=== PATIENT | female | born 1995 | race Caucasian/White ===

== ENCOUNTER 2017-08-05 20:31 | Emergency (ER) | payer OTHER ==
[~2017-08-05] VITALS: Ht 157.5 cm; Wt 117.9 kg
[~2017-08-05 20:31] MED LIST: ACET325 PO; ACET500 PO; BENTYL10 MG PO; HYDR1TAB94 PO; IBUP800 PO; ONDA4 PO
== END 2017-08-05 21:26 | disposition home or self-care (01) ==
LOC: ER 20:31
DX: S93.402A Sprain of unspecified ligament of left ankle, initial encounter (principal); W01.0XXA Fall on same level from slipping, tripping and stumbling without subsequent striking against object, initial encounter
CPT/HCPCS: 29515; 73610; 99283

== ENCOUNTER → 2018-04-12 | Outpatient (CLI) | payer OTHER | END | disposition home or self-care (01) | LOC: LAB EV 13:30 → LAB SHORT 13:30 | DX: N39.0 Urinary tract infection, site not specified (principal) | CPT/HCPCS: 87086 ==

== ENCOUNTER 2018-11-12 22:05 | Inpatient (IN) | payer OTHER ==
[~2018-11-12] VITALS: Ht 157.5 cm; Wt 110.0 kg
[2018-11-13 08:12] LABS: BASOPHILS ABSOLUTE AUTO 0.02 K/mm3 (0.00-0.23); BASOPHILS PERCENT AUTO 0 % (0-2); EOSINOPHILS ABSOLUTE AUTO 0.06 K/mm3 (0.00-0.68); EOSINOPHILS PERCENT AUTO 1 % (0-6); Hematocrit 35.2 % (33.0-51.0); Hemoglobin 11.3 g/dL (11.5-16.0); IMMATURE GRAN ABSOLUTE AUTO 0.04 K/mm3 (0.00-0.10); IMMATURE GRAN PERCENT AUTO 0 % (0-1); LYMPHOCYTES ABSOLUTE AUTO 1.72 K/mm3 (0.84-5.20); LYMPHOCYTES PERCENT AUTO 13 % (21-46); MONOCYTES ABSOLUTE AUTO 0.55 K/mm3 (0.16-1.47); MONOCYTES PERCENT AUTO 4 % (4-13); Mean Corpuscular HGB 25.5 pg (26.0-34.0); Mean Corpuscular HGB Conc 32.1 g/dL (31.5-36.5); Mean Corpuscular Volume 80 fL (80-100); Mean Platelet Volume 9.2 fL (9.1-12.4); NEUTROPHILS ABSOLUTE AUTO 10.63 K/mm3 (1.96-9.15); NEUTROPHILS PERCENT AUTO 82 % (41-73); Platelet Count 389 K/mm3 (150-400); RDW Coefficient Variation 14.5 % (11.7-14.2); RDW Standard Deviation 41.5 fL (35.1-46.3); Red Blood Cell Count 4.43 M/mm3 (3.80-5.20); White Blood Cell Count 13.02 K/mm3 (4.00-11.30)
[2018-11-14 05:18] LABS: BASOPHILS ABSOLUTE AUTO 0.02 K/mm3 (0.00-0.23); BASOPHILS PERCENT AUTO 0 % (0-2); EOSINOPHILS ABSOLUTE AUTO 0.02 K/mm3 (0.00-0.68); EOSINOPHILS PERCENT AUTO 0 % (0-6); Hematocrit 26.2 % (33.0-51.0); Hemoglobin 8.5 g/dL (11.5-16.0); IMMATURE GRAN ABSOLUTE AUTO 0.11 K/mm3 (0.00-0.10); IMMATURE GRAN PERCENT AUTO 1 % (0-1); LYMPHOCYTES ABSOLUTE AUTO 1.35 K/mm3 (0.84-5.20); LYMPHOCYTES PERCENT AUTO 9 % (21-46); MONOCYTES ABSOLUTE AUTO 0.78 K/mm3 (0.16-1.47); MONOCYTES PERCENT AUTO 5 % (4-13); Mean Corpuscular HGB 26.2 pg (26.0-34.0); Mean Corpuscular HGB Conc 32.4 g/dL (31.5-36.5); Mean Corpuscular Volume 81 fL (80-100); Mean Platelet Volume 9.3 fL (9.1-12.4); NEUTROPHILS ABSOLUTE AUTO 12.37 K/mm3 (1.96-9.15); NEUTROPHILS PERCENT AUTO 85 % (41-73); Platelet Count 282 K/mm3 (150-400); RDW Coefficient Variation 14.5 % (11.7-14.2); RDW Standard Deviation 41.9 fL (35.1-46.3); Red Blood Cell Count 3.25 M/mm3 (3.80-5.20); White Blood Cell Count 14.65 K/mm3 (4.00-11.30)
[2018-11-14] MEDS ORDERED: IBUP800 PO (10:18)
[2018-11-14] MEDS ORDERED: DOCU100 PO (10:20)
== END 2018-11-14 18:25 | disposition home or self-care (01) | DRG 807 ==
LOC: OBS 22:05 → BC 22:08 → OBS 11-13 07:42 → BC 11-13 07:48
PROVIDERS: ADMIT Nurse Practitioner Obstetrics & Gynecology
PROC: 10E0XZZ Delivery of Products of Conception, External Approach (ICD-10-PCS; principal; 2018-11-13)
PROC: 3E0R3BZ Introduction of Anesthetic Agent into Spinal Canal, Percutaneous Approach (ICD-10-PCS; 2018-11-13)
DX: O77.0 Labor and delivery complicated by meconium in amniotic fluid (principal); Z37.0 Single live birth; Z3A.39 39 weeks gestation of pregnancy; O99.214 Obesity complicating childbirth; E66.9 Obesity, unspecified
CPT/HCPCS: 36415; 51702; 59025; 85025; 86900; 86901; 99213; J1885; J2001; J2210; J2405; J2590; J3010; J7120

== ENCOUNTER 2019-01-27 08:41 | Day surgery (SDC) | payer OTHER ==
[~2019-01-27] VITALS: Ht 160 cm; Wt 104.7 kg
[~2019-01-27 08:41] MED LIST changes: +DOCU100 PO
[2019-01-27] MEDS ORDERED: SERT25 (09:28)
--- NOTE | 2019-01-27 10:10 | NUR ---
01/27/19 1010 Marta Cuellar ABDOMEN PREPPED BY [facility].VIVIANE.
== END 2019-01-27 12:21 | disposition home or self-care (01) ==
LOC: ORSCSDS 08:41
PROVIDERS: Obstetrics & Gynecology
PROC: 0UT74ZZ Resection of Bilateral Fallopian Tubes, Percutaneous Endoscopic Approach (ICD-10-PCS; principal; 2019-01-27 10:00)
DX: Z30.2 Encounter for sterilization (principal); N80.3 Endometriosis of pelvic peritoneum; E66.01 Morbid (severe) obesity due to excess calories; Z68.41 Body mass index [BMI] 40.0-44.9, adult
CPT/HCPCS: 88302; J0171; J0690; J1885; J2405; J2704; J3010; J7120

== ENCOUNTER → 2019-07-08 | Outpatient (CLI) | payer OTHER ==
[~2019-07-08] MED LIST changes: +SERT25
== END | disposition home or self-care (01) ==
LOC: LAB SHORT 10:05 → LAB EV 10:05
DX: N39.0 Urinary tract infection, site not specified (principal)
CPT/HCPCS: 87086

== ENCOUNTER → 2021-07-18 | Outpatient (CLI) | payer OTHER | END | disposition home or self-care (01) | LOC: LAB 10:00 → LAB SHORT 10:00 | DX: J02.9 Acute pharyngitis, unspecified (principal) | CPT/HCPCS: 87081 ==

== ENCOUNTER → 2022-10-22 | Outpatient (CLI) | payer OTHER ==
[2022-10-22 17:56] LABS: BASOPHILS ABSOLUTE AUTO 0.03 K/mm3 (0.00-0.23); BASOPHILS PERCENT AUTO 0 % (0-2); EOSINOPHILS ABSOLUTE AUTO 0.04 K/mm3 (0.00-0.68); EOSINOPHILS PERCENT AUTO 0 % (0-6); Hematocrit 44.6 % (33.0-51.0); Hemoglobin 15.5 g/dL (11.5-16.0); IMMATURE GRAN ABSOLUTE AUTO 0.06 K/mm3 (0.00-0.10); IMMATURE GRAN PERCENT AUTO 1 % (0-1); LYMPHOCYTES ABSOLUTE AUTO 2.48 K/mm3 (0.84-5.20); LYMPHOCYTES PERCENT AUTO 20 % (21-46); MONOCYTES ABSOLUTE AUTO 0.64 K/mm3 (0.16-1.47); MONOCYTES PERCENT AUTO 5 % (4-13); Mean Corpuscular HGB 30.3 pg (26.0-34.0); Mean Corpuscular HGB Conc 34.8 g/dL (31.5-36.5); Mean Corpuscular Volume 87 fL (80-100); Mean Platelet Volume 9.6 fL (9.1-12.4); NEUTROPHILS ABSOLUTE AUTO 9.36 K/mm3 (1.96-9.15); NEUTROPHILS PERCENT AUTO 74 % (41-73); Platelet Count 409 K/mm3 (150-400); RDW Coefficient Variation 12.3 % (11.7-14.2); RDW Standard Deviation 39.5 fL (35.1-46.3); Red Blood Cell Count 5.11 M/mm3 (3.80-5.20); White Blood Cell Count 12.61 K/mm3 (4.00-11.30)
[2022-10-22 18:07] LABS: Albumin, Blood 4.1 g/dL (3.4-5.0); Albumin/Globulin Ratio 1.1 (0.8-1.8); Bilirubin, Total 1.2 mg/dL (0.1-1.0); Bun/Creatinine Ratio 8.6 (12.0-20.0); Calcium, Blood 9.6 mg/dL (8.5-10.1); Creatinine, Blood 0.81 mg/dL (0.40-1.00); Globulin, Blood 3.7 g/dL (2.2-4.0); Potassium, Blood 3.9 mmol/L (3.5-5.5); Total Protein, Blood 7.8 g/dL (6.4-8.2)
== END | disposition home or self-care (01) ==
LOC: LAB 17:51 → LAB SHORT 17:51
PROVIDERS: Emergency Medicine
DX: K92.1 Melena (principal)
CPT/HCPCS: 80053; 83690; 85025

== ENCOUNTER 2023-02-21 06:33 | Inpatient (IN) | payer OTHER ==
[~2023-02-21] VITALS: Ht 170.2 cm; Wt 99.8 kg
[2023-02-21 07:37] LABS: BASOPHILS ABSOLUTE AUTO 0.04 K/mm3 (0.00-0.23); BASOPHILS PERCENT AUTO 0 % (0-2); EOSINOPHILS ABSOLUTE AUTO 0.21 K/mm3 (0.00-0.68); EOSINOPHILS PERCENT AUTO 2 % (0-6); Hematocrit 43.8 % (33.0-51.0); Hemoglobin 14.4 g/dL (11.5-16.0); IMMATURE GRAN ABSOLUTE AUTO 0.03 K/mm3 (0.00-0.10); IMMATURE GRAN PERCENT AUTO 0 % (0-1); LYMPHOCYTES ABSOLUTE AUTO 2.45 K/mm3 (0.84-5.20); LYMPHOCYTES PERCENT AUTO 21 % (21-46); MONOCYTES ABSOLUTE AUTO 0.64 K/mm3 (0.16-1.47); MONOCYTES PERCENT AUTO 6 % (4-13); Mean Corpuscular HGB 28.4 pg (26.0-34.0); Mean Corpuscular HGB Conc 32.9 g/dL (31.5-36.5); Mean Corpuscular Volume 86 fL (80-100); Mean Platelet Volume 9.5 fL (9.1-12.4); NEUTROPHILS ABSOLUTE AUTO 8.15 K/mm3 (1.96-9.15); NEUTROPHILS PERCENT AUTO 71 % (41-73); Platelet Count 468 K/mm3 (150-400); RDW Coefficient Variation 12.5 % (11.7-14.2); RDW Standard Deviation 38.8 fL (35.1-46.3); Red Blood Cell Count 5.07 M/mm3 (3.80-5.20); White Blood Cell Count 11.52 K/mm3 (4.00-11.30)
[2023-02-21 07:52] LABS: Alanine Aminotransfer (ALT/SGP 50 U/L (12-78); Albumin, Blood 3.8 g/dL (3.4-5.0); Alk Phos 94 U/L (50-136); Anion Gap 6 mmol/L (6-16); Aspartate Aminotrans (AST/SGOT 21 U/L (12-37); Beta HCG, Quantitative, Serum <1 mIU/mL (0-3); Bilirubin, Total 1.2 mg/dL (0.1-1.0); Blood Urea Nitrogen 9 mg/dL (8-24); Bun/Creatinine Ratio 14.8 (12.0-20.0); CO2, Blood 23 mmol/L (21-32); Calcium, Blood 8.4 mg/dL (8.5-10.1); Chloride, Blood 112 mmol/L (98-108); Creatinine, Blood 0.61 mg/dL (0.40-1.00); Globulin, Blood 3.8 g/dL (2.2-4.0); Glomerular Filtration Rate 126 (60-); Glucose, Blood 90 mg/dL (70-99); Potassium, Blood 3.6 mmol/L (3.5-5.5); Sodium, Blood 141 mmol/L (136-145); Total Protein, Blood 7.6 g/dL (6.4-8.2)
[2023-02-21 08:13] LABS: International Normalized Ratio 0.95
[2023-02-21 10:13] LABS: Percent Saturation 10.2 % (15.0-50.0)
[2023-02-21 11:38] LABS: Adenovirus F 40/41 Not Detected (NOT DETECT); Astrovirus Not Detected (NOT DETECT); Campylobacter Sp Not Detected (NOT DETECT); Cryptosporidium Not Detected (NOT DETECT); Cyclospora Cayetanensis Not Detected (NOT DETECT); E. Coli O157 Not Detected (NOT DETECT); Entamoeba Histolytica Not Detected (NOT DETECT); Enteroaggregative E. coli-EAEC Not Detected (NOT DETECT); Enteropathogenic E. coli-EPEC Not Detected (NOT DETECT); Enterotoxigenic E. coli-ETEC Not Detected (NOT DETECT); Giardia Lamblia Not Detected (NOT DETECT); Norovirus GI/GII Not Detected (NOT DETECT); Plesiomonas Shigelloides Not Detected (NOT DETECT); Rotavirus A Not Detected (NOT DETECT); Salmonella Sp Not Detected (NOT DETECT); Sapovirus Not Detected (NOT DETECT); Shiga Toxin-prod E. coli-STEC Not Detected (NOT DETECT); Shigella/Enteroin E. coli-EIEC Not Detected (NOT DETECT); Vibrio Cholerae Not Detected (NOT DETECT); Vibrio Sp Not Detected (NOT DETECT); Yersinia Enterocolitica Not Detected (NOT DETECT)
[2023-02-21 11:55] VITALS: BP 125/80
[2023-02-21 14:54] LABS: Hematocrit 41.3 % (33.0-51.0); Hemoglobin 13.6 g/dL (11.5-16.0)
[2023-02-21 15:14] VITALS: BP 118/77
--- NOTE | 2023-02-21 18:38 | NUR ---
PT ADMITTED TO ROOM 1150, A/O X4, STEADY ON FEET, INDEPENDANT IN ROOM. ORIENTED TO ROOM SET UP AND SARETY. INSTRUCTED TO BE ON CLEAR LIQ DIET. STARTED IV NS AT 100ML/HR. CALL LIGHT ORIENTATION.
--- NOTE | 2023-02-21 18:53 | NUR ---
SUMMARY- PT A/O X4, INDEPENDANT IN ROOM. HAD IRON INFUSION. TOLERATING CLEAR LIQ DIET. DRINKING LG AMOUNTS OF CLEARS. IVF DC'D. PLAN FOR COLONOSCOPY TOMORROW AFTERNOON AFTER COLON PREP COMPLETE. WILL REPORT TO ROB BLANCO
[2023-02-21 19:48] VITALS: BP 119/83
[2023-02-22] VITALS (42 sets, daily range): BP systolic 90–133; BP diastolic 36–86
--- NOTE | 2023-02-22 03:44 | NUR ---
END OF SHIFT SUMMARY PT A&O x4, VSS, AFEBRILE. PT PLEASANT AND COOPERATIVE WITH CARE PROVIDED. PT ABLE TO MAKE NEEDS KNOWN. PT C/O PAIN TO ABDOMINAL REGION SPECIFICALLY TO THE LUQ. PAIN MANAGED WITH PRN APAP WHICH WAS SOMEWHAT EFFECTIVE IN RELIEVING THE DISCOMFORT/TENDERNESS. BOWEL TONES PRESENT, PT STATED HER ABDOMEN FEELS MORE DISTENDED THEN USUAL. NAUSEA TREATED WITH PRN IV ZOFRAN. PT's LAST BOWEL MOVEMENT WAS YESTERDAY WITH MULTIPLE SPECS OF BRIGHT RED BLOOD. PT NPO AT 1200, SHE HAS A COLONOSCOPY SCHEDULED FOR TODAY. CALL LIGHT WITHIN REACH, [facility].
[2023-02-22 04:46] LABS: Hematocrit 40.6 % (33.0-51.0); Hemoglobin 13.3 g/dL (11.5-16.0); Mean Corpuscular HGB 28.7 pg (26.0-34.0); Mean Corpuscular HGB Conc 32.8 g/dL (31.5-36.5); Mean Corpuscular Volume 88 fL (80-100); Mean Platelet Volume 9.4 fL (9.1-12.4); Platelet Count 401 K/mm3 (150-400); RDW Coefficient Variation 12.5 % (11.7-14.2); RDW Standard Deviation 39.7 fL (35.1-46.3); Red Blood Cell Count 4.63 M/mm3 (3.80-5.20); White Blood Cell Count 9.32 K/mm3 (4.00-11.30)
[2023-02-22 05:13] LABS: Bun/Creatinine Ratio 8.6 (12.0-20.0); Calcium, Blood 8.6 mg/dL (8.5-10.1); Creatinine, Blood 0.58 mg/dL (0.40-1.00); Potassium, Blood 3.6 mmol/L (3.5-5.5)
--- NOTE | 2023-02-22 09:00 | NUR ---
pt laying in bed awake a/ox4, pleasant and cooperative with care, follows commands well, reports discomfort across her abd, points to upper abd, states more pronounced on left side, states her stools continue to have blood, lungs are clear t/o, on r/a, no cough noted, hrr, no edema noted, ppp+2, cap refill <3sec, vs stable, afebrile, piv site to lfa site is clear and patent, btx4, abd flat soft nontender, voids without diff, skin c/w/d, maew, up indep, chiki, call light in reach.
--- NOTE | 2023-02-22 14:15 | NUR ---
pt has been taken down for colonoscopy. her stool was clear yellow and one with pink tinged.
--- NOTE | 2023-02-22 14:42 | NUR ---
PT BROUGHT VIA GURNEY FROM 358 Patient confirms NPO status and agrees with scheduled surgery. History, Chart, Medications and Allergies reviewed before start of procedure.Pre-Op teaching done. Pt verbalizes understanding. Patient States Post-Procedure ride home has been arranged.
--- NOTE | 2023-02-22 15:34 | NUR ---
02/22/23 1534 Mariah Carmichael History, Chart, Medications and Allergies reviewed before start of procedure. 3-LEAD EKG REVIEWED WITH PHYSICIAN PRIOR TO START OF PROCEDURE. MONITOR INTACT WITH CONTINUOUS PULSE OXIMETRY, CONTINUOUS END TITAL CO2, AND INTERMITTENT BLOOD PRESSURE. O2 VIA N/C INTACT THROUGHOUT SEDATION/PROCEDURE. PATIENT DETERMINED TO BE ASA APPROPRIATE FOR PROPOFOL SEDATION PRIOR TO START OF PROCEDURE BY .
--- NOTE | 2023-02-22 17:34 | NUR ---
Pt returned to room awake, but a bit wobbley on her feet, she did ambulate into the bathroom, family at bedside. call light in reach.
--- NOTE | 2023-02-22 18:32 | NUR ---
pt assisted to the bathroom again, much more steady, call from Dr. Barrett that he's going to change the orders for the imaging, waiting on new orders, no further changes this shift. call light in reach.
--- NOTE | 2023-02-22 19:44 | NUR ---
PT STILL HAVING SMALL AMOUNT OF BRIGHT RED BLOOD FROM RECTUM. NO SOLID BM.
[2023-02-23 00:15] VITALS: BP 110/76
[2023-02-23 04:39] VITALS: BP 111/71
[2023-02-23 05:35] LABS: BASOPHILS ABSOLUTE AUTO 0.03 K/mm3 (0.00-0.23); BASOPHILS PERCENT AUTO 0 % (0-2); EOSINOPHILS ABSOLUTE AUTO 0.14 K/mm3 (0.00-0.68); EOSINOPHILS PERCENT AUTO 1 % (0-6); Hematocrit 41.5 % (33.0-51.0); Hemoglobin 13.8 g/dL (11.5-16.0); IMMATURE GRAN ABSOLUTE AUTO 0.05 K/mm3 (0.00-0.10); IMMATURE GRAN PERCENT AUTO 0 % (0-1); LYMPHOCYTES ABSOLUTE AUTO 2.28 K/mm3 (0.84-5.20); LYMPHOCYTES PERCENT AUTO 20 % (21-46); MONOCYTES ABSOLUTE AUTO 0.59 K/mm3 (0.16-1.47); MONOCYTES PERCENT AUTO 5 % (4-13); Mean Corpuscular HGB 28.9 pg (26.0-34.0); Mean Corpuscular HGB Conc 33.3 g/dL (31.5-36.5); Mean Corpuscular Volume 87 fL (80-100); Mean Platelet Volume 9.7 fL (9.1-12.4); NEUTROPHILS ABSOLUTE AUTO 8.62 K/mm3 (1.96-9.15); NEUTROPHILS PERCENT AUTO 74 % (41-73); Platelet Count 421 K/mm3 (150-400); RDW Coefficient Variation 12.4 % (11.7-14.2); RDW Standard Deviation 39.7 fL (35.1-46.3); Red Blood Cell Count 4.77 M/mm3 (3.80-5.20); White Blood Cell Count 11.71 K/mm3 (4.00-11.30)
[2023-02-23 06:05] LABS: Calcium, Blood 8.8 mg/dL (8.5-10.1); Creatinine, Blood 0.63 mg/dL (0.40-1.00); Potassium, Blood 3.3 mmol/L (3.5-5.5)
--- NOTE | 2023-02-23 06:17 | NUR ---
SHIFT SUMMARY PT STILL HAVING BLOODY OUTPUT FROM RECTUM. NO SOLID BM, ON CLEAR LIQUIDS. C/O PERSISTENT NAUSEA, PRN ZOFRAN GIVEN X2, NO EMESIS OVERNIGHT. C/O PERSISTENT PAIN NOT RELIEVED WITH TYLENOL. SUPERVISOR [employer]OVING DEPARTMENT PROVIDER ORDERED PRN FENTANYL AND PERCOCET. CT OF CHEST COMPLETED LAST NIGHT. PENDING MRI, FORM FILLED AND FAXED. PENDING SURGIAL CONSULT TODAY, CONSULT TO BE CALLED IN AFTER 8AM, DURING OFFICE HOURS PER NURSE NOTIFY ORDER.
[2023-02-23 07:30] VITALS: BP 110/66
[2023-02-23] MEDS ORDERED: Percocet 5-3251 EACH PO (14:19)
[2023-02-23] MEDS ORDERED: FERSU300 PO (14:20)
[2023-02-23 15:12] VITALS: BP 127/84
--- NOTE | 2023-02-23 18:16 | NUR ---
PT DISCHARGED HOME. DC INSTRUCTIONS AND EDUCATION MATERIAL EXPLAINED TO PT. NO NEW QUESTIONS OR CONCERNS. PERSCRIPTIONS FAXED TO [facility] PER PHARMACY. HARD COPY OF PERSCRIPTION GIVEN TO PT WITH INSTRUCTIONS TO GIVE TO PHARMACY TO FILL PAIN MEDICATION. NO NEW QUESTIONS OR CONCERNS. DR ZHU OFFICE CALLED PT TO SCEADULE OUT PATIENT APPOINTMENT. DR BAI CALL PT BEFORE DC TO UPDATE PT ABOUT MRI RESULTS. ALL BELONGINGS SENT HOME WITH PT. WAS ABLE TO TAKE PT OUT BY WHEELCHAIR TO WAITING VEHICLE.
[2023-02-23 21:28] LABS: CALPROTECTIN,FECAL 521 ug/g (<=49)
== END 2023-02-23 17:36 | disposition home or self-care (01) | DRG 376 ==
LOC: ER 06:33 → MEDS 10:23
PROVIDERS: Emergency Medicine; Internal Medicine; Internal Medicine Gastroenterology; ADMIT Internal Medicine
PROC: 0DB68ZX Excision of Stomach, Via Natural or Artificial Opening Endoscopic, Diagnostic (ICD-10-PCS; 2023-02-22)
PROC: 0DBN8ZX Excision of Sigmoid Colon, Via Natural or Artificial Opening Endoscopic, Diagnostic (ICD-10-PCS; principal; 2023-02-22 17:00)
PROC: 0DBK8ZZ Excision of Ascending Colon, Via Natural or Artificial Opening Endoscopic (ICD-10-PCS; 2023-02-22 17:00)
PROC: 0DBL8ZZ Excision of Transverse Colon, Via Natural or Artificial Opening Endoscopic (ICD-10-PCS; 2023-02-22 17:00)
PROC: 3E0H8KZ Introduction of Other Diagnostic Substance into Lower GI, Via Natural or Artificial Opening Endoscopic (ICD-10-PCS; 2023-02-22 17:00)
PROC: 0DB98ZX Excision of Duodenum, Via Natural or Artificial Opening Endoscopic, Diagnostic (ICD-10-PCS; 2023-02-22 17:00)
DX: C18.7 Malignant neoplasm of sigmoid colon (principal); F41.8 Other specified anxiety disorders; D50.9 Iron deficiency anemia, unspecified; K52.9 Noninfective gastroenteritis and colitis, unspecified; K63.5 Polyp of colon; Z80.0 Family history of malignant neoplasm of digestive organs
CPT/HCPCS: 36415; 71260; 72197; 74177; 80048; 80053; 82306; 82378; 82728; 83540; 83550; 83993; 84702; 85014; 85018; 85025; 85027; 85610; 85651; 86140; 87507; 96374-59; 99285-25; A9270; A9579; J2001; J2405; J2704; J2916; J3010; J7030; J7120; Q9967

== ENCOUNTER 2023-03-10 06:46 | Day surgery (SDC) | payer OTHER ==
[~2023-03-10] VITALS: Ht 157.5 cm; Wt 100.8 kg
[~2023-03-10 06:46] MED LIST changes: +FERSU300 PO; +Percocet 5-3251 EACH PO
[2023-03-10] MEDS ORDERED: ALPRAZOLAM110 PO (07:20)
[2023-03-10] MEDS ORDERED: ONDA4ODT MM (07:20)
[2023-03-10] MEDS ORDERED: IBU800 M1 PO (07:21)
--- NOTE | 2023-03-10 10:02 | NUR ---
03/10/23 JADE DA SILVA FROM RAD IN @ 1443 FOR MEDIPORT PLACEMENT. AT BEDSIDE. PT CALM AT THIS TIME. PT HAS APPT TODAY AT 3:[address] GREENE.
[2023-03-10 10:34] VITALS: BP 110/73
== END 2023-03-10 10:46 | disposition home or self-care (01) ==
LOC: ORSCSDS 06:46
PROVIDERS: Surgery
PROC: 0JH60WZ Insertion of Totally Implantable Vascular Access Device into Chest Subcutaneous Tissue and Fascia, Open Approach (ICD-10-PCS; principal; 2023-03-10 08:00)
DX: C20 Malignant neoplasm of rectum (principal); E66.9 Obesity, unspecified; Z68.41 Body mass index [BMI] 40.0-44.9, adult
CPT/HCPCS: 77001; A9270; C1788; J0690; J1100; J1642; J1885; J2001; J2405; J2704; J3010; J7120

== ENCOUNTER → 2023-06-29 | Outpatient (CLI) | payer OTHER ==
[~2023-06-29] MED LIST changes: +ALPRAZOLAM110 PO; +IBU800 M1 PO; +ONDA4ODT MM
[2023-06-29 17:51] LABS: Appearance, Urine Clear (Clear); Bilirubin, Urine Neg (Neg); Blood, Urine Neg (Neg); Glucose Qualitative, Urine Neg (Neg); Ketones, Urine Neg (Neg); Leukocyte Esterase, Urine Neg (Neg); Nitrite, Urine Neg (Neg); Protein, Urine Neg (Neg); Specific Gravity, Urine 1.005 (1.003-1.022); Urobilinogen, Urine NORM (Normal)
[2023-06-29 17:58] LABS: Color, Urine Pale Yellow (P-Yellow)
== END | disposition home or self-care (01) ==
LOC: LAB SHORT 17:10 → LAB 17:10
PROVIDERS: Surgery
DX: C20 Malignant neoplasm of rectum (principal); R30.0 Dysuria
CPT/HCPCS: 81003

== ENCOUNTER 2023-12-10 06:03 | Day surgery (SDC) | payer OTHER ==
[2023-12-10] VITALS (10 sets, daily range): BP systolic 104–139; BP diastolic 53–92
[~2023-12-10] VITALS: Ht 157.5 cm; Wt 87.4 kg
[2023-12-10] MEDS ORDERED: MORP15ER PO (06:29)
[2023-12-10] MEDS ORDERED: Lactated Ringer's 1,000 ML IV SCH (06:45)
--- NOTE | 2023-12-10 06:56 | NUR ---
Ambulatory in Day Surgery. History, Chart, Medications and Allergies reviewed before start of procedure. Lungs clear T/O to Auscultation. Patient confirms NPO status and agrees with scheduled surgery. Pre-Op teaching done. Pt verbalizes understanding. Patient States Post-Procedure ride home has been arranged. PT BELONGINGS PLACED [facility] FOR SAFEKEEP[facility].
[2023-12-10] MEDS ORDERED: propofoL 20 ML IV ONE (06:59)
[2023-12-10] MEDS ORDERED: Midazolam HCl 1MG / ML 2ML Vial IV ONE (07:15)
[2023-12-10] MEDS ORDERED: Ketorolac Tromethamine 30mg Vial ONE (07:17)
[2023-12-10] MEDS ORDERED: Dexamethasone Sod Phos 10 MG/ML 1ML VIAL ONE (07:17)
[2023-12-10] MEDS ORDERED: Ondansetron HCl 2 MG / ML 2ML Vial ONE (07:17)
[2023-12-10] MEDS ORDERED: FentaNYL Citrate 50 MCG/ML 2 ML Injection ONE (07:17)
[2023-12-10] MEDS ORDERED: Bupivacaine 0.5% HCl 5 MG/ML 30MLVIAL ONE (07:21)
[2023-12-10] MEDS ORDERED: HYDROcodone 5-APAP 325 TAB PO PRN (08:20)
--- NOTE | 2023-12-10 08:39 | NUR ---
PT TO DAY SURGERY STEP DOWN FROM PACU; BEDSIDE REPORT RECEIVED. PT IS AWAKE, ALERT AND ORIENTED; ABLE TO MOVE SELF IN BED. VSS. PT HAS AN INCISION ON HER UPPER RIGHT CHEST THAT IS CLOSED WITH EXOFIN AND IS C/D/I.
--- NOTE | 2023-12-10 08:53 | NUR ---
PT TOLERATING PO FLUIDS AND CRACKERS WELL. ICE PACK GIVEN
--- NOTE | 2023-12-10 09:06 | NUR ---
Discharge instructions reviewed with patient. Patient verbalizes understanding. Copy given to patient to take home. Patient States Post-Procedure ride home has been arranged.
--- NOTE | 2023-12-10 09:09 | NUR ---
Patient up to Ambulate independently. Gait steady. Discharged via wheelchair to private car for ride home.
== END 2023-12-10 09:11 | disposition home or self-care (01) ==
LOC: ORSCMMR 06:03 → ORD 07:30 → ORSCMMR 09:11
PROVIDERS: Surgery
PROC: 0JPT0XZ Removal of Tunneled Vascular Access Device from Trunk Subcutaneous Tissue and Fascia, Open Approach (ICD-10-PCS; principal; 2023-12-10 07:30)
DX: Z45.2 Encounter for adjustment and management of vascular access device (principal); C20 Malignant neoplasm of rectum; F32.A Depression, unspecified; F41.9 Anxiety disorder, unspecified; E66.9 Obesity, unspecified; Z68.43 Body mass index [BMI] 50.0-59.9, adult; Z79.899 Other long term (current) drug therapy
CPT/HCPCS: A9270; J1100; J1885; J2250; J2405; J2704; J3010; J7120

== ENCOUNTER → 2024-05-01 | Outpatient (CLI) | payer OTHER ==
[~2024-05-01] MED LIST changes: +MORP15ER PO
[2024-05-01 14:13] LABS: Bacterial Vaginosis PCR Negative (NEGATIVE); Candida Group, PCR NOT DETECTED (NOT DETECT); Candida glabrata-krusei, PCR NOT DETECTED (NOT DETECT)
== END ==
LOC: LAB SHORT 12:25 → LAB 12:25
PROVIDERS: Nurse Practitioner Family
DX: N89.8 Other specified noninflammatory disorders of vagina (principal)
CPT/HCPCS: 81515; 87252

== ENCOUNTER → 2024-07-26 | Outpatient (CLI) | payer OTHER ==
[2024-07-26 19:59] LABS: Bacterial Vaginosis PCR Negative (NEGATIVE); Candida glabrata-krusei, PCR NOT DETECTED (NOT DETECT)
[2024-07-26 20:02] LABS: Candida Group, PCR DETECTED (NOT DETECT)
== END | disposition home or self-care (01) ==
LOC: LAB 14:30 → LAB SHORT 14:30
PROVIDERS: Family Medicine
DX: N89.8 Other specified noninflammatory disorders of vagina (principal)
CPT/HCPCS: 81515

== ENCOUNTER → 2024-08-23 | Outpatient (CLI) | payer OTHER ==
[2024-08-23 15:10] LABS: Bacterial Vaginosis PCR Negative (NEGATIVE); Candida glabrata-krusei, PCR NOT DETECTED (NOT DETECT)
[2024-08-23 15:11] LABS: Candida Group, PCR DETECTED (NOT DETECT)
== END ==
LOC: LAB 10:25 → LAB SHORT 10:25
PROVIDERS: Nurse Practitioner Family
DX: N89.8 Other specified noninflammatory disorders of vagina (principal)
CPT/HCPCS: 81515

== ENCOUNTER 2024-10-19 08:55 | Day surgery (SDC) | payer OTHER ==
[~2024-10-19] VITALS: Ht 157.5 cm; Wt 79.8 kg
[2024-10-19] MEDS ORDERED: VALTREX50013 (09:05)
[2024-10-19] MEDS ORDERED: GABA100 (09:05)
[2024-10-19] MEDS ORDERED: Cetirizine HCl10 MG (09:05)
[2024-10-19 10:50] VITALS: BP 97/71
== END 2024-10-19 10:47 | disposition home or self-care (01) ==
LOC: ORSCSDS 08:55
PROVIDERS: Internal Medicine Gastroenterology
PROC: 0DJD8ZZ Inspection of Lower Intestinal Tract, Via Natural or Artificial Opening Endoscopic (ICD-10-PCS; principal; 2024-10-19 10:30)
DX: Z85.038 Personal history of other malignant neoplasm of large intestine (principal); Z86.0101 Personal history of adenomatous and serrated colon polyps; Z90.49 Acquired absence of other specified parts of digestive tract; Z79.899 Other long term (current) drug therapy
CPT/HCPCS: J2704; J7120